=== PATIENT | female | born 1975 | race Caucasian/White ===

== ENCOUNTER 2024-03-05 19:27 | Emergency (ER) | payer MEDICAID, SELFPAY ==
[2024-03-05 19:29] VITALS: BP 121/68; PULSE 83; RESP 18; TEMP 36.7; O2SAT 98; BMI 27.6
[2024-03-05 21:15] VITALS: BP 116/73; PULSE 79; RESP 18; O2SAT 98
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
--- NOTE | 2024-03-05 21:36 | ED.RN ---
patient states I feel like it is going to fall out if I don't lay down patient motions to pelvic region during this statement. patient states I had intercourse and I got what I asked for but I feel like it was too much patient denies bleeding or discharge from her vagina. patient states there is some pain but pain description is nonspecific. patient denies other complaints other than I think I have an upper respiratory infection too Additionally, patient states my daughter who is a nurse thinks I have sun poisoning patient's arms noted to have red spotted rash on both forearms.
[2024-03-05 21:42] LABS: Absolute Lymphocyte Count 2.42 X10^3/uL (0.83-4.51); Absolute Neutrophil Count 4.7 X10^3/uL (2.0-7.7); Basophil# 0.09 X10^3/uL; Basophil% 1.1 % (0-1); Eosinophil# 0.19 X10^3/uL; Eosinophils% 2.3 % (0-5); Hematocrit 40.2 % (37-47); Hemoglobin 13.3 g/dL (12.0-15.0); Lymphocyte # 2.42 X10^3/ul (0.83-4.51); Lymphocyte % 29.4 % (19-41); Mean Corp Hgb Conc 33.1 g/dL (32-36); Mean Corpuscular Hgb 28.5 pg (27.0-32.0); Mean Corpuscular Volume 86.3 fL (81-99); Mean Platelet Vol. 9.4 fl (6.2-12.0); Monocyte# 0.84 X10^3/uL; Monocyte% 10.2 % (0-10); NRBC Flagged by Analyzer 0 % (0-5); Neutrophil # 4.66 X10^3/uL (2.7-7.7); Neutrophil % 56.8 % (47-70); Platelet Count 288 K/mm3 (150-450); RBC Distribution Width CV 12.9 % (11.6-14.6); RBC Distribution Width SD 40.3 fl (35.1-43.9); Red Blood Count 4.66 M/mm3 (4.2-5.4); White Blood Count 8.2 K/mm3 (4.4-11.0)
[2024-03-05 21:55] LABS: ALB/GLOB Ratio 0.9 RATIO (0.9-2.4); AST(SGOT) 20 U/L (15-37); Alanine Aminotransfer ALT/SGPT 17 U/L (13-56); Albumin, Serum 3.7 g/dL (3.2-5.0); Alkaline Phosphatase 69 U/L (45-117); Anion Gap 8 (5-15); BUN 9 mg/dL (7-18); BUN/Creat Ratio 13.2 RATIO (10-20); Calcium,Total 9.5 mg/dL (8.5-10.1); Chloride 107 mmol/L (98-107); Creatinine, Serum 0.68 mg/dL (0.55-1.02); EST Glomerular Filtration Rate 97 mL/min (>60); Est Glom Filt Rate - Afr Amer 117 mL/min (>60); Estimated Creatinine Clearance 101.61 ml/min; Glucose 112 mg/dL (74-106); Potassium 3.3 mmol/L (3.5-5.1); Protein, Total 7.7 g/dL (6.4-8.2); Sodium Level 139 mmol/L (136-145)
[2024-03-05 22:14] LABS: Mucous, Urine 0 SEEN /hpf (<or=2+)
[2024-03-05 22:15] LABS: Color, Urine Yellow (Yellow); Glucose, Dipstick Normal (Normal); Ketone-Dipstick 5 mg/dl (Negative); Leukocyte Esterase-Dipstick 500 /ul (Negative); Nitrite-Dipstick Positive (Negative); Occult Blood-Urine 25 /ul (Negative); Protein-Dipstick Negative (Negative); Urine Bilirubin Dipstick Negative (Negative); Urine Clarity Sl. Cloudy (Clear); Urine Urobilinogen Normal (Normal); Urine pH 6.5 (5.0 - 8.0)
[2024-03-05 22:19] LABS: Alcohol, Blood (Medical)-Serum < 3.0 mg/dL
[2024-03-05 22:21] LABS: Bacteria 3+ /hpf (None Seen); Red Blood Cells-Urine 0-5 SEEN /hpf (0-5); White Blood Cells 10-25 SEEN /hpf (0-5)
[2024-03-05 22:22] LABS: Internal QC Validated? YES +Cl - CLEAR BKGD; Pregnancy, Urine Negative Negative; Squamous Epithelial Cells - UA 0-5 SEEN /hpf (5-10)
[2024-03-05 22:28] LABS: Amphetamine Urine VISTA NEGATIVE (<1000 ng/mL); Barbiturate Urine VISTA NEGATIVE (< 200 ng/mL); Benzodiazepine Urine VISTA NEGATIVE (< 200 ng/mL); Cocaine Urine VISTA POSITIVE (< 300 ng/mL); Ecstacy Urine VISTA NEGATIVE (< 500 ng/mL); Methadone Urine VISTA NEGATIVE (< 300 ng/mL); PCP Urine VISTA NEGATIVE (< 25 ng/mL); THC Urine VISTA POSITIVE (< 50 ng/mL); Vista UDS pH Range 6
[2024-03-05] MEDS: Potassium Chloride Oral Tablet 20 MEQ 40 MEQ PO (22:40)
[2024-03-05] MEDS: Cephalexin 250 MG Capsule 500 MG PO (22:40)
[2024-03-05 22:43] VITALS: BP 118/89; PULSE 76; RESP 16; TEMP 36.8; O2SAT 97
--- NOTE | 2024-03-05 22:57 | ED.RN ---
Difficulty with patient leaving room after being discharged. Informed pt she needed to call for ride. Pt then went to waiting room and pulled out marijuana. Informed pt that she needed to wait outside for ride, that she could not have drugs on hospital property. Pt asked for a survey and this nurse's name. Informed HRO Michael Rodriguez observed pt attempting to light joint inside of ER doors. HRO escorted pt outside.
--- NOTE | 2024-03-06 00:50 | ED.RN ---
Pt standing outside of ER doors on phone, yelling and swearing, can be heard from nursing supervisor paint roller covers office upstairs. This nurse instructed pt that she needed to leave the property. Pt states to nurse she is not leaving without the police and begins yelling and swearing at this nurse. PD called and PD instructed pt to leave. PD advised pt that if she returned she would be arrested.
== END 2024-03-05 22:44 | disposition home or self-care (01) ==
PROVIDERS: Emergency Provider Emergency Medicine; Visit Provider Emergency Medicine
DX: N39.0 Urinary tract infection, site not specified (principal); E87.6 Hypokalemia; F17.210 Nicotine dependence, cigarettes, uncomplicated
CPT/HCPCS: 80053; 80307; 80320; 81001; 81025; 85025; 99283; A4216; G0480